=== PATIENT | female | born 1975 | race Caucasian/White ===

== ENCOUNTER 2019-01-27 15:26 | Emergency (ER) | payer MEDICARE, MEDICAID ==
[~2019-01-27] VITALS: Ht 167.6 cm; Wt 119.0 kg
[2019-01-27 15:42] VITALS: BP 134/70
== END 2019-01-27 17:59 | disposition home or self-care (01) ==
LOC: ER 15:27
DX: M79.672 Pain in left foot (principal); L84 Corns and callosities; E11.9 Type 2 diabetes mellitus without complications
CPT/HCPCS: 99281

== ENCOUNTER 2019-09-21 12:08 | Emergency (ER) | payer MEDICARE, MEDICAID ==
[~2019-09-21] VITALS: Ht 167.6 cm; Wt 119.0 kg
[2019-09-21 12:13] VITALS: BP 152/82
== END 2019-09-21 14:24 | disposition left against medical advice (07) ==
LOC: ER 12:09
DX: M54.5 Low back pain (principal); Z53.21 Procedure and treatment not carried out due to patient leaving prior to being seen by health care provider

== ENCOUNTER 2024-04-07 18:50 | Emergency (ER) | payer MEDICARE, MEDICAID ==
[~2024-04-07] VITALS: Ht 167.6 cm; Wt 108.8 kg
[2024-04-07] MEDS: acetaminophen 325mg tablet PO ONE (21:12)
[2024-04-07 21:35] VITALS: BP 136/76; PULSE 65; RESP 16; TEMP 98.9; O2SAT 99
== END 2024-04-07 21:36 | disposition home or self-care (01) ==
LOC: ER 18:51
DX: S00.81XA Abrasion of other part of head, initial encounter (principal); R56.9 Unspecified convulsions; E11.649 Type 2 diabetes mellitus with hypoglycemia without coma; W18.39XA Other fall on same level, initial encounter; Y93.89 Activity, other specified; Y92.89 Other specified places as the place of occurrence of the external cause; Y99.8 Other external cause status
CPT/HCPCS: 70450; 82948; 99284